=== PATIENT | male | born 1995 | race Hispanic/Latino ===

== ENCOUNTER 2022-04-22 23:50 | Emergency (ER) | payer SELFPAY ==
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
[2022-04-23 00:08] VITALS: BP 135/78; PULSE 114; RESP 17; TEMP 37; O2SAT 97
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
[2022-04-23] MEDS: LIDOCAINE HCL 1% PF 30 ML VIAL 5 ML INFILTRATE (02:02)
[2022-04-23] MEDS: ONDANSETRON HCL ODT 4 MG TABLET PO (03:29)
== END 2022-04-23 04:00 | disposition home or self-care (01) ==
PROVIDERS: Emergency Provider Emergency Medicine
DX: S01.312A Laceration without foreign body of left ear, initial encounter (principal); Y00.XXXA Assault by blunt object, initial encounter
CPT/HCPCS: 12011; 12013; 70450; 99284; A9270